=== PATIENT | female | born 1945 | race Caucasian/White ===

== ENCOUNTER → 2016-11-22 | Outpatient (CLI) | payer MEDICARE, BC ==
[~2016-11-22] MED LIST: AUGMENTIN875 MG PO; B COMPLETE1 EACH PO; CLARITIN D 12 H1 TAB PO; ELAVIL25 MG PO; NORCO 5-325 MG1 TAB PO; PROBIOTIC1 EAC4 PO; THERA-VITE W/ B1 TAB PO; TYLENOL PM EX-1 EACH PO; ZANTAC (NON-FO150 MG PO
== END | disposition disaster alternative care site (69) ==
LOC: GRAD 09:14
DX: C34.90 Malignant neoplasm of unspecified part of unspecified bronchus or lung (principal); R91.8 Other nonspecific abnormal finding of lung field; J90 Pleural effusion, not elsewhere classified; J98.4 Other disorders of lung; R59.0 Localized enlarged lymph nodes; R52 Pain, unspecified
CPT/HCPCS: A9577

== ENCOUNTER → 2017-02-18 | Outpatient (CLI) | payer MEDICARE, BC | END | disposition disaster alternative care site (69) | LOC: GRAD 09:09 | DX: C34.12 Malignant neoplasm of upper lobe, left bronchus or lung (principal); C78.1 Secondary malignant neoplasm of mediastinum; K20.9 Esophagitis, unspecified; R09.82 Postnasal drip ==